=== PATIENT | female | born 1970 | race Caucasian/White ===

== ENCOUNTER 2020-09-25 07:51 | Emergency (ER) | payer OTHER, SELFPAY ==
[2020-09-25] VITALS (8 sets, daily range): BP systolic 157–180; BP diastolic 102–119; PULSE 73–99; RESP 16–20; TEMP 36.7; O2SAT 99–100
--- NOTE | ~2020-09-25 | CT_ITS ---
EXAMINATION: CT BRAIN W/O DATE: 09/25/2020 09:25 INDICATION: Occipital headache. TECHNIQUE: Computed tomography (CT) of the head was performed without intravenous contrast. The dose- length product was 605.33 mGy-cm. Automated exposure control and iterative reconstruction technique w ere employed. COMPARISON: No prior studies for comparison. FINDINGS: Normal brain parenchymal volume for age. Normal reyes-white differentiation. No acute intrac ranial hemorrhage, infarction, mass or mass effect. No ventriculomegaly or midline shift. Midline sagittal images demonstrate a normal corpus callosum, c raniovertebral junction and sella turcica. Basilar cisterns are patent. Paranasal sinuses and mastoids are pneumatized. No depressed skull fractures. IMPRESSION: 1. No acute intracranial abnormality. Reviewed, dictated and finalized at location A.
--- NOTE | 2020-09-25 08:53 | ED.HA ---
HPI - Headache General Chief Complaint: Headache Stated Complaint: Headache Time Seen by Provider: 09/25/20 08:38 Source: patient and RN notes reviewed Mode of arrival: ambulatory Limitations: no limitations History of Present Illness HPI Narrative: Patient is 50 years old white female presents with left occipital headache started 6 days ago, 4 days after receiving [employer] Covid vaccine. Patient is concerned about the possibility of blood clot and pinched nerve. Patient reported the pain is constant, was more intense last night than this morning. Intermittent nausea and vomiting. History of similar headache years ago and used to be on BuSpar and Excedrin. History of fibromyalgia. Patient denies any fever, chills, vision change. MD elicited complaint: headache Related Data Allergies Allergy/AdvReac Type Severity Reaction Status Date / Time codeine AdvReac Intermediate Hypotension Verified 09/25/20 08:02 erythromycin base AdvReac Intermediate upset Verified 09/25/20 08:02 stomach Review of Systems Review of Systems: Narrative: CONSTITUTIONAL: Denies fever, chills, or sweats. EYES: Denies visual changes, redness, or discharge. ENT: Denies rhinorrhea, congestion, sore throat, or otalgia. CARDIOVASCULAR: Denies chest pain, palpitations, or edema. RESPIRATORY: Denies cough or dyspnea. GASTROINTESTINAL: Denies abdominal pain, nausea, vomiting, or diarrhea. GENITOURINARY: Denies dysuria or hematuria. SKIN: Denies rash or itching. MUSCULOSKELETAL: Denies back pain, joint pain, or myalgia. NEUROLOGIC: Denies headache, numbness, or weakness. PSYCHIATRIC: Denies anxiety or depression. [facility] Past Medical History Medical History Arthritis Bronchitis Depression Fibromyalgia Insomnia Nonallergic rhinitis Normal colonoscopy (~03/2019) repeat 5-7 years Surgical History Surgical History [place] teeth extracted Family History Family History Mother Hypertension Father Family history of emphysema Social History Social History Smoking status: Never smoker Second hand tobacco smoke exposure: No Alcohol intake: current Exam Narrative: Exam Narrative: General appearance: Well-developed, well-nourished Skin: Normal color Head: Normocephalic, nontraumatic Eyes: Clear conjunctiva ENT: Oropharynx normal, ears normal, nose normal Neck: Supple, nontender Chest and respiratory: Airway patent, no respiratory distress, no accessory muscle use Heart: Regular rate/rhythm Abdomen: Soft, nontender, no organomegaly, quiet bowel sounds Vascular: Normal peripheral pulses, normal capillary refill. Musculoskeletal: Normal range of motion, nontender back Neurologic: Alert and oriented ?3, M[employer]ESS [employer]ER is normal as tested, no gross motor deficit Course Course Emergency Course: Improving Vital Signs Vital signs: Vital Signs Temperature 36.7 C 09/25/20 07:54 Pulse Rate 99 09/25/20 07:54 Respiratory Rate 20 09/25/20 07:54 Blood Pressure 180/119 H 09/25/20 07:54 Pulse Oximetry 100 09/25/20 07:54 Temperature 36.7 C 09/25/20 07:54 Pulse Rate 82 09/25/20 10:45 Respiratory Rate 18 09/25/20 10:45 Blood Pressure 157/108 H 09/25/20 10:45 Pulse Oximetry 100 09/25/20 10:45 MDM - Headache MDM Narrative Medical decision making narrative: Tension headache is my concern. CT head, IV Toradol, Valium and oral Excedrin ordered. Further plan to follow Differential Diagnosis Differential diagnosis: Likely tension headache,
[2020-09-25] MEDS: KETOROLAC 30 MG/ML VIAL (*BKC) IV PUSH (09:07)
[2020-09-25] MEDS: LORazepam INJ (*CRX) 2 MG/ML VIAL 1 MG IV PUSH (09:07)
[2020-09-25] MEDS: SODIUM CHLORIDE 0.9% IV 1,000 ML 999 ML IV CONT (09:33)
[2020-09-25] MEDS: ACETAMINOPHEN/ASPIRIN/CAFFEINE 250-250-65 MG TABLET 2 TABLET PO (09:33)
--- NOTE | 2020-09-25 10:23 | PC.NURSE ---
pt reports that meds have not reduced headache
[2020-09-25] MEDS: ONDANSETRON INJ 4 MG/2 ML VIAL IV PUSH (11:11)
[2020-09-25] MEDS: HYDROmorphone HCL INJ (*CRX) 1 MG/ML SYR 0.5 MG IV PUSH (11:11)
== END 2020-09-25 12:20 | disposition home or self-care (01) ==
PROVIDERS: Emergency Provider Emergency Medicine; PCP Family Medicine
DX: R51.9 Headache, unspecified (principal); I10 Essential (primary) hypertension; M19.90 Unspecified osteoarthritis, unspecified site; M79.7 Fibromyalgia
CPT/HCPCS: 70450; 96361; 96374; 96375; 99284; A9270; J1170; J1885; J2060; J2405; J7030

== ENCOUNTER → 2021-03-14 02:02 | Outpatient (CLI) | payer OTHER, SELFPAY ==
[2021-03-14 17:54] LABS: SARS-CoV-2 RNA PCR Negative
== END ==
PROVIDERS: PCP Family Medicine; Visit Provider Physician Assistant
DX: Z20.822 Contact with and (suspected) exposure to COVID-19 (principal)
CPT/HCPCS: C9803; U0003; U0005

== ENCOUNTER 2022-06-30 07:45 | Outpatient (CLI) | payer BC, SELFPAY ==
--- NOTE | ~2022-06-30 | US_ITS ---
EXAMINATION: US abdomen limited DATE: 06/30/2022 08:23 INDICATION: Right upper quadrant pain TECHNIQUE: Multiple grayscale and Doppler ultrasound images of the abdomen were obtained. COMPARISON: None available FINDINGS: The head, body, and tail of the pancreas are normal. The liver is normal with normal echoge nicity and echotexture. No surface nodularity. Normal hepatopetal flow in the main portal vein. The g allbladder is normal with no abnormal wall thickening, pericholecystic fluid or stones. The normal co mmon bile duct measures 4 mm. There was no sonographic Hook sign. IMPRESSION: 1. Normal sonographic study of the gallbladder. Reviewed, dictated and finalized at location L.
== END 2022-06-30 07:46 | disposition home or self-care (01) ==
LOC: ANHIMG 07:49
PROVIDERS: PCP Family Medicine; Visit Provider Physician Assistant Medical
DX: R10.11 Right upper quadrant pain (principal)
CPT/HCPCS: 76705

== ENCOUNTER 2023-08-20 10:59 | Outpatient (CLI) | payer BC, SELFPAY ==
--- NOTE | ~2023-08-20 | XR_ITS ---
Lumbosacral Spine: AP and lateral views Clinical History: Pain Findings: The normal lordotic curve is maintained. The vertebral bodies and posterior elements are i ntact. The intervertebral disc spaces are preserved. There is moderate facet arthropathy throughout the lumbar spine, worst at L4-L5 and L5-S1. The sacroiliac joints are normally outlined. Impression: Facet joint arthropathy, as detailed above. Reviewed, dictated and finalized at location M. Impression: Facet joint arthropathy, as detailed above.
--- NOTE | ~2023-08-20 | XR_ITS ---
Cervical Spine: AP, lateral, open-mouth views Clinical History: Pain Findings: The normal lordotic curve is maintained there is minimal grade 1 retrolisthesis of C5 over C6. There is advanced degenerative disc narrowing at C5-C6. There is mild degenerative disc narrowing at C6-C7. There are mild to moderate facet joint degenerative changes of the cervical spine. Pre-tierney tebral soft tissues are unremarkable. Impression: Degenerative spondylosis, as detailed above, worst at C5-C6. Reviewed, dictated and finalized at location M. Impression: Degenerative spondylosis, as detailed above, worst at C5-C6.
--- NOTE | ~2023-08-20 | XR_ITS ---
EXAMINATION: XR sacroiliac joints min 3V DATE: 08/20/2023 11:37 INDICATION: Arthralgia with multiple joint pain TECHNIQUE: Frontal and left and right oblique views of the bilateral sacroiliac joints were obtained. COMPARISON: None. FINDINGS: Alignment is normal. No fracture or suspected osteonecrosis. Mild bilateral hip and sacroiliac osteoa rthritis. No erosions to suggest an inflammatory sacroiliitis. A few phleboliths in the pelvis. T-sha ped IUD in expected position projecting over the central pelvis. IMPRESSION: 1. Mild bilateral hip and sacroiliac osteoarthritis. No erosions to suggest an inflammatory sacroilii tis. 2. IUD in expected position. Reviewed, dictated and finalized at location A. IMPRESSION: 1. Mild bilateral hip and sacroiliac osteoarthritis. No erosions to suggest an inflammatory sacroiliitis. 2. IUD in expected position.
== END 2023-08-20 11:00 ==
LOC: MICIMG 11:01
PROVIDERS: PCP Emergency Medicine Emergency Medical Services; Visit Provider Emergency Medicine Emergency Medical Services
DX: M16.0 Bilateral primary osteoarthritis of hip (principal); M46.1 Sacroiliitis, not elsewhere classified; M47.896 Other spondylosis, lumbar region; M47.897 Other spondylosis, lumbosacral region; M47.892 Other spondylosis, cervical region; R53.83 Other fatigue; M79.7 Fibromyalgia; M25.562 Pain in left knee; M25.561 Pain in right knee; Z97.5 Presence of (intrauterine) contraceptive device
CPT/HCPCS: 72040; 72100; 72202; 73562

== ENCOUNTER 2024-03-07 11:38 | Outpatient (CLI) | payer BC, SELFPAY ==
[2024-03-07 12:27] LABS: Influenza A QL RT-PCR Negative (Negative); Influenza B QL RT-PCR Negative (Negative); RSV RNA, RT-PCR Negative (Negative); SARS-CoV-2 RNA PCR Negative (Negative)
== END 2024-03-07 11:39 | disposition home or self-care (01) ==
LOC: ANHLAB 11:39
PROVIDERS: PCP Family Medicine; Visit Provider Family Medicine
DX: J06.9 Acute upper respiratory infection, unspecified (principal); Z20.822 Contact with and (suspected) exposure to COVID-19
CPT/HCPCS: 87637

== ENCOUNTER 2025-02-11 08:07 | Emergency (ER) | payer BC, SELFPAY ==
--- NOTE | 2025-02-11 08:14 | ED.GENADULT ---
HPI - General Adult General Chief complaint: Upper Respiratory Infection Stated complaint: vomiting Time Seen by Provider: 02/11/25 08:15 Source: patient Mode of arrival: ambulatory Limitations: no limitations History of Present Illness HPI narrative: 54-year-old female patient presents to the [facility] with complaints of vomiting for the past 2 days. Patient states she has just been not feeling well all week but the last 2 days has had some vomiting and some abdominal pain. Patient states she has had some right upper quadrant abdominal pain for the past 2 years however her abdominal pain has gotten worse over the last couple of days. Patient states she has had chills body aches fatigue but has not been measuring her temperature. Patient states last bowel movement was yesterday and was little bit of diarrhea. Patient states that she has been trying to take her blood pressure medication but has been vomiting it up Related Data Allergies Allergy/AdvReac Type Severity Reaction Status Date / Time codeine AdvReac Intermediate Hypotension Verified 02/11/25 08:29 erythromycin base AdvReac Intermediate upset Verified 02/11/25 08:29 stomach Review of Systems Review of Systems: CONSTITUTIONAL: Denies fever, chills, or sweats. Positive body aches and chills EYES: Denies visual changes, redness, or discharge. ENT: Denies rhinorrhea, congestion, sore throat, or otalgia. CARDIOVASCULAR: Denies chest pain, palpitations, or edema. RESPIRATORY: Denies cough or dyspnea. GASTROINTESTINAL: Positive abdominal pain, positive nausea, positive vomiting, positive diarrhea. GENITOURINARY: Denies dysuria or hematuria. Positive increase in urine output SKIN: Denies rash or itching. MUSCULOSKELETAL: Denies back pain, joint pain, or myalgia. NEUROLOGIC: Positive headache, denies numbness, or weakness. PSYCHIATRIC: Denies anxiety or depression. [facility] Past Medical History Medical History Hypertension Insomnia Fibromyalgia Depression Nonallergic rhinitis Normal colonoscopy (~03/2019) repeat 5-7 years Arthritis Surgical History Surgical History [place] teeth extracted Family History Family History Mother Hypertension Father Family history of emphysema Social History Social History Smoking status: Never smoker Second hand tobacco smoke exposure: No Alcohol intake: never Substance use: never Substance use type: does not use Lack of Transportation: No Lack of Food: Never True Current Housing: I Have Housing Concerned About Future Housing: No Difficulty Paying Gas/Electric Bills: No Difficulty Paying for Meds: No Currently Unemployed: No Education: Bachelor's Degree Difficulty w/ Childcare or Family Care: No Living arrangements: with family Gender identity (if verbalized by the patient): Female Spiritual care concerns: No Agree to blood products: Yes Comments At the time of my signature I agree with nursing past medical history, surgical, social, and family history. There is no relevant family history pertinent to the presenting complaint. Exam Narrative: GENERAL: Well-appearing, well-nourished, and in no acute distress. HEAD: Normocephalic, atraumatic. EYES: PERRLA and EOMI. ENT: Nares clear, no rhinorrhea or epistaxis. Mucous membranes moist. Posterior pharynx with no erythema, tonsillar enlargement, exudates or lesions present. Bilateral TMs are clear no erythema or foreign bodies the canal. NECK: Supple. No lymphadenopathy CHEST: Clear to auscultation. No respiratory distress. HEART: Regular rate and rhythm. No murmur heard. Normal peripheral pulses. ABDOMEN: Soft, flat, nondistended. No guarding, rebound tenderness, or rigid. No pulsatilla masses. Mild tenderness noted to bilateral upper quadrants and bilateral lower quadrants on palpation. Hyperactive Bowel sounds present in all four quadrants. No organomegaly. Negative Hook?s sign. No periumbicial tenderness. No Supra public tenderness or distension. Good femoral pulses bilaterally. No hernia noted. No scars or surface trauma. EXTREMITIES: Normal range of motion. No edema. SKIN: Warm, dry, no rash. NEURO: No focal deficits. Alert and oriented x3. Course Course Level of Care: Express Care Visit Reevaluation(s) Reevaluation #1: Re-evaluated patient notified her that her viral swabs are negative today we also checked her urine it does show some glucose ketones and protein in the urine however blood sugar was slightly elevated considering she has not had any thing to eat. Discussed with patient that her EKG is not super concerning today however given her symptoms and the right upper quadrant pain we are going to send her to the ER for further evaluation to rule out gallbladder and appendicitis or any other abdominal infection. Patient verbalized understanding denies any other questions or concerns at this time. Date: 02/11/25 Time: 09:08 Vital Signs Vital signs: Vital Signs Temperature 36.4 C L 02/11/25 08:17 Pulse Rate 80 02/11/25 08:17 Respiratory Rate 18 02/11/25 08:17 Blood Pressure 198/110 H 02/11/25 08:17 Pulse Oximetry 100 02/11/25 08:17 Oxygen Delivery Room Air 02/11/25 08:17 Temperature 36.4 C L 02/11/25 08:17 Pulse Rate 80 02/11/25 08:17 Respiratory Rate 18 02/11/25 08:17 Blood Pressure 198/110 H 02/11/25 08:17 Pulse Oximetry 100 02/11/25 08:17 Oxygen Delivery Room Air 02/11/25 08:17 Vital signs reviewed. The patient has been informed that they may have pre-hypertension or Hypertension based on a BP reading in the department. I recommend that the patient call the primary care provider listed on their discharge instructions or a physician of their choice this week to arrange follow up for further evaluation of possible pre-hypertension or Hypertension Transfer Transfered to: [facility] Transportation: Other (Private vehicle) Transfer rationale: Nausea vomiting abdominal pain and hypertension Accepting physician: Dr. Cr Medical Decision Making MDM Narrative Medical decision making narrative: Plan care patient is to swab her today for strep, influenza and COVID. We will also consider checking a urine dip on her and a blood sugar as well as EKG. I will reassess patient once this has resulted if we do not find anything with these we may refer her to the ER for further evaluation. Differential Diagnosis Differential Diagnosis: Differential diagnosis: Appendicitis, ovarian torsion, gallbladder disease, ovarian torsion, pancreatitis, lower lobe pneumonia,AAA, AMI or ACS, DKA, diverticulitis. Vital Signs Vital Signs: Vital Signs Temperature 36.4 C L 02/11/25 08:17 Pulse Rate 80 02/11/25 08:17 Respiratory Rate 18 02/11/25 08:17 Blood Pressure 198/110 H 02/11/25 08:17 Pulse Oximetry 100 02/11/25 08:17 Oxygen Delivery Room Air 02/11/25 08:17 Temperature 36.4 C L 02/11/25 08:17 Pulse Rate 80 02/11/25 08:17 Respiratory Rate 18 02/11/25 08:17 Blood Pressure 198/110 H 02/11/25 08:17 Pulse Oximetry 100 02/11/25 08:17 Oxygen Delivery Room Air 02/11/25 08:17 Lab Data Labs: Lab Results 02/11/25 02/11/25 02/11/25 Range/Units 08:15 08:27 08:51 POC Capillary Glucose 160 H (65-105) mg/dl POC Influenza A Ag Negative (Negative) POC Influenza B Ag Negative (Negative) POC SARS CoV-2 Ag Negative (Negative) POC Grp A Strep Screen Negative (Negative) ECG Data EKG #1: Interpretation: Sinus rhythm. Left atrial enlargement. Abnormal ECG. Unconfirmed report. Vent rate: 97 IN interval: 120 QRS duration: 86 QT/QTC: 357/412 T-R-T axis: 61, 20, 23 Average RR: 613 QTC B: 455 QTCf: 420 EKG Interpretation: normal rate Critical Care Time Critical Care Time Critical Care Time: No Discharge Plan Discharge Clinical Impression: Right upper quadrant abdominal pain Nausea & vomiting Qualifiers: Vomiting type: unspecified Qualified Code(s): R11.2 - Nausea with vomiting, unspecified Patient Disposition: Acute Care Hospital Condition: Stable Instructions: Antibiotic Form Patient Language: Mauritanian Prescriptions: No Action albuterol sulfate 90 mcg/actuation HFA aerosol inhaler 1 inh inhalation Q4H PRN (Reason: shortness of breath or wheezing) Qty: 8.5 1RF cyclobenzaprine 10 mg tablet 10 mg PO TID Qty: 21 0RF aripiprazole [Abilify] 5 mg tablet 5 mg PO QHS Qty: 30 0RF Rx Instructions: Cut tablets in half for two weeks, take 1/2 tab per night. After two weeks, take one full tablet per night. paroxetine HCl [Paxil] 20 mg tablet 20 mg PO DAILY Qty: 90 3RF duloxetine [Cymbalta] 20 mg capsule,delayed release(DR/EC) 20 mg PO BID Qty: 60 6RF losartan 50 mg tablet 50 mg PO DAILY Qty: 90 3RF meloxicam 15 mg tablet 15 mg PO DAILY Qty: 30 3RF trazodone 100 mg tablet 100 mg PO QHS Qty: 60 3RF Follow-up/Referrals: Jessica Mandujano MD [Primary Care Provider, Family Practice] Time of Disposition: 09:08
[2025-02-11 08:17] VITALS: BP 198/110; PULSE 80; RESP 18; TEMP 36.4; O2SAT 100
[2025-02-11 08:36] LABS: EDSTREPNEGPOS1 Negative (Negative)
[2025-02-11 08:36] LABS: EDCOVIDSCREEN Negative (Negative); EDINFLUASCREEN Negative (Negative); EDINFLUBSCREEN Negative (Negative)
--- NOTE | 2025-02-11 08:47 | ECG_ITS ---
Test Date: 2025-02-11 09:57:50 Measurements Intervals [place] Rate: 94 P: 53 NV: 104 QRS: 6 QRSD: 89 T: 19 QT: 369 QTc: 463 Interpretive Statements SINUS RHYTHM WITH SHORT NV INTERVAL Compared to ECG 02/11/2025 09:02:58 no change Electronically Signed On 02-11-2025 13:21:06 CARDER BLANKETS by [place] M.D.
[2025-02-11 09:03] LABS: EDUAAPPEAR Clear; EDUABILI 1+ (Negative); EDUABLOOD Trace (Negative); EDUACOLOR1 Dark; EDUAGLUCOSE 1+ (Negative); EDUAKETONE 1+ (Negative); EDUALEUKO Negative (Negative); EDUANITRATE Negative (Negative); EDUAPH 6.0; EDUAPROTEIN 3+ (Negative); EDUASPGRAVITY 1.030; EDUAUROBILI 0.2
== END 2025-02-11 09:08 | disposition short-term general hospital (02) ==
PROVIDERS: Emergency Provider Nurse Practitioner Family; PCP Family Medicine
DX: R10.11 Right upper quadrant pain (principal); R11.2 Nausea with vomiting, unspecified; Z20.822 Contact with and (suspected) exposure to COVID-19; I10 Essential (primary) hypertension; M79.7 Fibromyalgia; M19.90 Unspecified osteoarthritis, unspecified site
CPT/HCPCS: 81003; 82948; 87081; 87426; 87804; 87880; 93005; 99213; G0463

== ENCOUNTER 2025-02-11 09:38 | Emergency (ER) | payer BC, SELFPAY ==
[2025-02-11] VITALS (18 sets, daily range): BP systolic 130–167; BP diastolic 84–106; PULSE 68–119; RESP 15–27; TEMP 36.4; O2SAT 86–100
--- NOTE | ~2025-02-11 | CT_ITS ---
EXAMINATION: CT abdomen pelvis w con DATE: 02/11/2025 11:18 INDICATION: Right abdominal pain. Nausea and vomiting. TECHNIQUE: Computed tomography (CT) of the abdomen and pelvis was performed with 100 mL Omnipaque 350 intravenous contrast. Automated exposure control and iterative reconstruction technique were employed. The dose-length product was 285.68 mGy-cm. COMPARISON: None. FINDINGS: The visualized portions of the lung bases demonstrate mild atelectasis. Calcified right lung nodules and calcified paraesophageal lymph nodes are consistent with old granulomatous disease. No pleural effusion. The heart size is normal. No pericardial effusion. There is a 9 mm cyst in the live r. The gallbladder is normal. Calcifications in the spleen are consistent with old granulomatous disease. The pancreas, adrenal glands, and right kidney are normal. There is cortical thinning of left kidney. There is a 4 mm cyst in left kidney. There is an intrauterine device in expected position. The appendix is normal. There are no dilated loops of bowel. There is no free intraperitoneal fluid. There is mild thoracic and lumbar spondylosis. IMPRESSION: 1. No etiology for the patient's symptoms. Reviewed, dictated and finalized at location E. ADJUSTER
--- NOTE | 2025-02-11 09:49 | ECG_ITS ---
Test Date: 2025-02-11 09:02:58 Measurements Intervals [place] Rate: 97 P: 61 CA: 120 QRS: 20 QRSD: 86 T: 23 QT: 357 QTc: 455 Interpretive Statements SINUS RHYTHM LEFT ATRIAL ENLARGEMENT [-0.15mV P WAVE IN V1/V2] No previous ECG available for comparison Electronically Signed On 02-11-2025 13:20:41 LAST MARKER by [place] M.D.
--- NOTE | 2025-02-11 10:08 | ED.NAVMDI ---
HPI - Nausea/Vomiting/Diarrhea General Chief complaint: Nausea/Vomiting/Diarrhea Stated complaint: NV, not able to keep anything down, abd pain Time Seen by Provider: 02/11/25 10:03 Source: patient Mode of arrival: ambulatory Limitations: no limitations History of Present Illness HPI Narrative: 54 years old white female referred to the emergency room from urgent care for further evaluation. Patient complain of headache started 4 days ago, gradually getting better. Could not go to work 3 days ago, yesterday started having severe frequent vomiting roughly up to 50 time and up to 3 episodes of watery diarrhea. Been having right upper quadrant pain off and on for the last 2 years probably worse over the last 2 days which is steady radiating to epigastric and retrosternal. Patient does not smoke cigarette, drink alcohol occasionally, using gummies daily. No abdominal surgery, history of hypertension, granddaughter had upper respiratory symptom 1 week ago At the urgent care patient tested negative for COVID flu and RSV Patient drove herself to the emergency room. Related Data Allergies Allergy/AdvReac Type Severity Reaction Status Date / Time codeine AdvReac Intermediate Hypotension Verified 02/11/25 09:45 erythromycin base AdvReac Intermediate upset Verified 02/11/25 09:45 stomach Review of Systems Review of Systems: All systems reviewed & are unremarkable except as noted in HPI and below PMFSH Past Medical History Medical History Hypertension Insomnia Fibromyalgia Depression Nonallergic rhinitis Normal colonoscopy (~03/2019) repeat 5-7 years Arthritis Surgical History Surgical History Elizabeth teeth extracted Family History Family History Mother Hypertension Father Family history of emphysema Social History Social History Smoking status: Never smoker Second hand tobacco smoke exposure: No Alcohol intake: never Substance use: never Substance use type: does not use Lack of Transportation: No Lack of Food: Never True Current Housing: I Have Housing Concerned About Future Housing: No Difficulty Paying Gas/Electric Bills: No Difficulty Paying for Meds: No Currently Unemployed: No Education: Bachelor's Degree Difficulty w/ Childcare or Family Care: No Living arrangements: with family Gender identity (if verbalized by the patient): Female Spiritual care concerns: No Agree to blood products: Yes Exam Narrative: General appearance: Well-developed, well-nourished Skin: Normal color Head: Normocephalic, nontraumatic Eyes: Clear conjunctiva ENT: Oropharynx normal, ears normal, nose normal Neck: Supple, nontender Chest and respiratory: Airway patent, no respiratory distress, no accessory muscle use Heart: Regular rate/rhythm Abdomen: Soft, slight tenderness with deep palpation right upper quadrant, negative Hook sign, no organomegaly, quiet bowel sounds Vascular: Normal peripheral pulses, normal capillary refill. Musculoskeletal: Normal range of motion, nontender back Neurologic: Alert and oriented ?3, DIRECTOR EDUCATIONAL RADIO is normal as tested, no gross motor deficit Course Vital Signs Vital signs: Vital Signs Temperature 36.4 C 02/11/25 09:46 Pulse Rate 117 H 02/11/25 09:46 Respiratory Rate 18 02/11/25 09:46 Blood Pressure 145/94 H 02/11/25 09:46 Pulse Oximetry 100 02/11/25 09:46 Oxygen Delivery Room Air 02/11/25 09:46 Temperature 36.4 C 02/11/25 09:46 Pulse Rate 99 02/11/25 10:04 Respiratory Rate 17 02/11/25 10:04 Blood Pressure 157/90 H 02/11/25 10:04 Pulse Oximetry 100 02/11/25 10:04 Oxygen Delivery Room Air 02/11/25 09:46 MDM - Nausea/Vomiting/Diarrhea MDM Narrative Medical decision making narrative: Nausea, vomiting and diarrhea Vital signs showing blood pressure 145/94, heart rate 117 otherwise within normal limit Physical exam showing slight tenderness right quadrant Differential diagnosis include gastroenteritis, electrolyte imbalance, dehydration, cholecystitis, pancreatitis, colitis, diverticulitis Blood workup today includes CBC, CMP, lipase showed sodium 132, total bilirubin 1.7, otherwise within normal limit Urinalysis showed no evidence of infection CT abdomen and pelvis with IV contrast showed no acute abnormality. Diagnosis gastroenteritis The pt was discharged to home.the pt,s condition upon discharge was fair,education was provided to the pt in reference to the final impression,discharge study results,treatment,prognosis and need for follow up . Differential Diagnosis Differential diagnosis: Likely other (As above) Medical Records Attestation: I reviewed the patient's medical records. Lab Data Attestation: I reviewed the patient's lab results. 02/11/25 10:04 02/11/25 10:04 Labs: Lab Results 02/11/25 Range/Units 10:04 WBC 6.5 (4.5-10.0) K/mm3 RBC 4.56 (4.2-5.4) M/mm3 Hgb 13.2 (12.0-15.0) g/dL Hct 40.9 (37.0-47.0) % MCV 89.7 (80-100) fl MCH 28.9 (26-34) pg MCHC 32.3 (32-36) g/dl RDW 12.3 (11.5-14.5) % Plt Count 401 H (150-375) k/mm3 MPV 8.6 (7.4-10.4) fl Immature Gran % (Auto) 0.5 (0-0.5) % Neut % (Auto) 83.4 H (45.5-73.1) % Lymph % (Auto) 9.3 L (18.3-44.2) % Forrest % (Auto) 6.6 (2.6-8.5) % Eos % (Auto) 0.0 (0-4.4) % Baso % (Auto) 0.2 (0.2-1.2) % Lymph # (Auto) 0.61 L (0.9-3.2) K/mm3 Forrest # (Auto) 0.4 (0.1-0.6) K/mm3 Eos # (Auto) 0.0 (0-0.3) K/mm3 Baso # (Auto) 0.0 (0.0-0.1) K/mm3 Abs Immat Gran (auto) 0.03 (0.00-0.031) K/mm3 Absolute Neuts (auto) 5.5 (1.3-6.7) K/mm3 Absolute Nucleated RBC 0.000 (0.0-0.012) K/mm3 Nucleated RBC % 0.0 (0.0-0.2) % Sodium 132 L (137-145) mmol/L Potassium 3.8 (3.4-5.0) mmol/L Chloride 95 L (98-107) mmol/L Carbon Dioxide 26 (22-30) mmol/L Anion Gap 11 (4-12) mmol/L BUN 11 (7-17) mg/dL Creatinine 0.66 L (0.7-1.0) mg/dL Estim Creat Clear Calc 76 ml/min Estimated GFR > 60 (59 - ) Glucose 134 H (65-110) mg/dL Calcium 10.0 (8.4-10.2) mg/dL Total Bilirubin 1.7 H (0.2-1.3) mg/dL AST 29 (14-36) U/L ALT 25 (6-35) U/L Alkaline Phosphatase 93 (38-126) U/L Troponin I 0.012 (0.000-0.034) ng/mL Total Protein 8.7 H (6.3-8.2) g/dL Albumin 4.9 (3.5-5.1) g/dL Lipase 84 (23-300) U/L Urine Color Dark yellow (Yellow) Urine Appearance Cloudy H (Clear) Urine pH 6.0 (5.0-9.0) Ur Specific [place] 1.026 (1.001-1.035) Urine Protein 3+ H (Negative) mg/dL Urine Glucose (UA) Negative (Negative) mg/dL Urine Ketones 1+ H (Negative) mg/dL Ur Blood (Man) Negative (Negative) Urine Nitrate Negative (Negative) Urine Bilirubin 1+ H (Negative) Urine Urobilinogen 1.0 (<2.0) mg/dL Add Ur Microanalysis Reviewed Leukocyte Esterase Rfl Trace H (Negative) AMBER/UL Urine RBC 3-5 H (0-2) /hpf Urine WBC 0-5 (0-3) /hpf Ur Squamous Epith Cells Moderate (Few) /hpf Urine Bacteria None seen /hpf Urine Casts 6-10 Urine Mucus Present /lpf POC Urine HCG, Qual Negative (Negative) Imaging Data Radiologist's impression: Impressions Abdomen/Pelvis CT 02/11/25 11:21 IMPRESSION: 1. No etiology for the patient's symptoms. Critical Care Time Critical Care Time Critical Care Time: No Discharge Plan Discharge Clinical Impression: Vomiting Patient Disposition: Home Condition: Improved Instructions: Acute Nausea and Vomiting (ED) Additional Instructions: Return if symptoms are worsening , call your family physician for appointment, take Tylenol as as needed for aches and pain, continue home medications. Patient Language: Sudanese Prescriptions: New ondansetron 4 mg tablet,disintegrating 4 mg PO Q4H PRN (Reason: nausea and vomiting) 3 Days Qty: 10 0RF No Action albuterol sulfate 90 mcg/actuation HFA aerosol inhaler 1 inh inhalation Q4H PRN (Reason: shortness of breath or wheezing) Qty: 8.5 1RF cyclobenzaprine 10 mg tablet 10 mg PO TID Qty: 21 0RF aripiprazole [Abilify] 5 mg tablet 5 mg PO QHS Qty: 30 0RF Rx Instructions: Cut tablets in half for two weeks, take 1/2 tab per night. After two weeks, take one full tablet per night. paroxetine HCl [Paxil] 20 mg tablet 20 mg PO DAILY Qty: 90 3RF duloxetine [Cymbalta] 20 mg capsule,delayed release(DR/EC) 20 mg PO BID Qty: 60 6RF losartan 50 mg tablet 50 mg PO DAILY Qty: 90 3RF meloxicam 15 mg tablet 15 mg PO DAILY Qty: 30 3RF trazodone 100 mg tablet 100 mg PO QHS Qty: 60 3RF Follow-up/Referrals: Jessica Mandujano MD [Primary Care Provider, Family Practice] Stand Alone Forms: Work/School Release IP
[2025-02-11 10:09] LABS: BEDSIDEPREGUCG Negative (Negative)
[2025-02-11 10:13] LABS: Hematocrit 40.9 % (37.0-47.0); Hemoglobin 13.2 g/dL (12.0-15.0); Immature Granulocyte Percent A 0.5 % (0-0.5); Lymphocytes Absolute Auto 0.61 K/mm3 (0.9-3.2); Mean Corpuscular HGB Conc 32.3 g/dl (32-36); Mean Corpuscular Hemoglobin 28.9 pg (26-34); Mean Corpuscular Volume 89.7 fl (80-100); Nucleated Red Blood Cells Absolute Auto 0.000 K/mm3 (0.0-0.012); Nucleated Red Blood Cells Perc 0.0 % (0.0-0.2); Platelet Count Result 401 k/mm3 (150-375); Red Blood Count 4.56 M/mm3 (4.2-5.4); White Blood Count 6.5 K/mm3 (4.5-10.0)
[2025-02-11 10:22] LABS: Add Urine Microscopic? YES; Appearance Urine Cloudy (Clear); Glucose Urine UA Negative (Negative); Leukocyte Esterase Ur Trace LEU/UL (Negative); Need Manual Microscopic Reviewed; Nitrate Urine Negative (Negative); Specific Grav Ur 1.026 (1.001-1.035)
[2025-02-11 10:23] LABS: Alanine Aminotransferase 25 U/L (6-35); Albumin Level 4.9 g/dL (3.5-5.1); Alkaline Phosphatase 93 U/L (38-126); Anion Gap 11 mmol/L (4-12); Aspartate Amino Transferase 29 U/L (14-36); Bilirubin,Total 1.7 mg/dL (0.2-1.3); Blood Urea Nitrogen 11 mg/dL (7-17); Calcium 10.0 mg/dL (8.4-10.2); Carbon Dioxide 26 mmol/L (22-30); Chloride 95 mmol/L (98-107); Estimated CRCL calculation 76 ml/min; Estimated Glomerular Filt Rate > 60; Glucose 134 mg/dL (65-110); Lipase 84 U/L (23-300); Potassium 3.8 mmol/L (3.4-5.0); Sodium 132 mmol/L (137-145); Total Protein 8.7 g/dL (6.3-8.2)
[2025-02-11 10:34] LABS: Troponin I 0.012 ng/mL (0.000-0.034)
[2025-02-11] MEDS: SODIUM CHLORIDE 0.9% IV 1,000 ML 999 ML IV CONT (11:18)
[2025-02-11] MEDS: ONDANSETRON INJ 4 MG/2 ML VIAL IV PUSH (11:18)
== END 2025-02-11 12:56 | disposition home or self-care (01) ==
PROVIDERS: Emergency Medicine; Emergency Provider Emergency Medicine; PCP Family Medicine
DX: R11.2 Nausea with vomiting, unspecified (principal)
CPT/HCPCS: 36415; 74177; 80053; 81001; 81003; 81025; 82948; 83690; 84484; 85025; 87081; 87426; 87804; 87880; 93005; 96361; 96374; 99284; J2405; J7030; Q9967

== ENCOUNTER 2025-03-14 11:01 | Outpatient (CLI) | payer BC, SELFPAY ==
--- NOTE | 2025-03-14 11:07 | ECG_ITS ---
Test Date: 2025-03-14 11:22:58 Measurements Intervals [place] Rate: 97 P: 64 NV: 123 QRS: 33 QRSD: 91 T: 40 QT: 353 QTc: 450 Interpretive Statements SINUS RHYTHM BASELINE ARTIFACT- I, III, AVR, AVL ,V1 NORMAL ECG Compared to ECG 02/11/2025 09:57:50 Short NV interval no longer present Electronically Signed On 03-14-2025 11:49:56 VEGETABLE SORTER by Billy Nicholas D.O.
--- OUTSIDE RECORDS SUMMARY | 2025-03-14 12:41 | XMS_ITS | Encounter Summary ---
Author Organization [facility] Healthcare Address [address] [place] [address] Care Team Providers Care Baby Formula Mixer Name Role Phone Jessica Mandujano MD Primary Care Provider [phone] Encounter Details Date Type Department Care Team (Late st Contact Info) Description 05/01/[address] 

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
--- OUTSIDE RECORDS SUMMARY | 2025-03-14 12:41 | XMS_ITS | Clinical Summary ---
Author Organization [facility] Address [address] [place] [address] Care Team Providers Care Semiconductors Wafer Breaker Name Role Phone Jessica Mandujano MD Primary Care Provider [phone] Primo Bowens MD Unavailable [phone] Source Comments [facility],non-owned Affiliates and Associated Physician Practices is amultiple site organization consisting of ambulatory clinics and hospital sitesin [place], [place], [place] and [place]. This disclosure is being madepursuant to the Care Everywhere program and may not contain all information available regarding this patient. Last updated 17.[facility] Allergies Active Allergy Reactions Criticality Noted Date Comments Codeine Other High 12/20/2017 Medications * Be aware that medications may not be up to date on this document. Alwaysverify current medications with the patient. traZODone (DESYREL) 150 MG tablet Take 150 mg by mouth at bedtime 06/29/2019 Active VENTOLIN HFA 108 (90 Base) MCG/ACT inhaler Take 2 puffs by mouth as needed 09/06/2018 Active gabapentin (NEURONTIN) 300 MG capsule Take 300 mg by mouth at bedtime 07/27/2019 Active meloxicam (MOBIC) 15 MG tablet Take 15 mg by mouth once daily 07/27/2019 Active PARoxetine (PAXIL) 20 MG tablet Take 20 mg by mouth once daily 12/09/2017 Active levonorgestrel (MIRENA, 52 MG,) 20 MCG/24HR IUD Active Active Problems No known active problems Social History Tobacco Use Types Packs/Day Years Used Date Smoking Tobacco: Never Smokeless Tobacco: Never Alcohol Use Standard Drinks/Week Comments Not Currently 0 (1 standard drink = 0.6 oz pur e alcohol) Comments No Sex and Gender Information Value Date Recorded Sex Assigned at Not on file 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 Gender Identity Not on file Sexual Orientation Not on file Plan of Treatment Health Maintenance Due Date Last Done Comments COLOGUARD (AGES 45-75) - COL ON CA SCREENING 1968 COLON MONITORING 1968 COLONOSCOPY - COLON CA SCREENING 1968 CT COLONOGRAPHY - COLON CA SCREENING 1968 Colorectal Cancer Screening 1968 FIT - COLON CA SCREENING 1968 FLEX SIG - COLON CA SCREENING 1968 LIPID TESTING 1968 MAMMOGRAM 1968 HIV SCREENING 1983 DTAP/TDAP/TD VACCINES (1 - Tdap) 1987 HEPATITIS B VACCINE (1 of 3 - 19+ 3-dose series) 1987 PAP SMEAR 1989 Cervical Cancer Screening 1998 PAP with HPV 1998 PNEUMOCOCCAL VACCINE 50+ (1 of 1 - PCV) 2018 ZOSTER VACCINE (1 of 2) 2018 DEPRESSION SCREENING 04/12/2024 COVID-19 VACCINE (1 - 2024-2 6 season) 2024 INFLUENZA VACCINE (#1) 2024 HEPATITIS C SCREENING Completed 08/28/2019 HIB VACCINE Aged Out No longer eligi ble based on patient's age to complete this topic HPV VACCINE Aged Out No longer eligi ble based on patient's age to complete this topic MENINGOCOCCAL (Group B) VACC INE SHARED DECISION-MAKING Aged Out No longer eligibl e based on patient's age to complete this topic MENINGOCOCCAL GROUPS A/C/Y/W VACCINE Aged Out No longer eligible b ased on patient's age to complete this topic Procedures Procedure Name Priority Date/Time Associated Diagnosis Comments HEPATITIS SCREEN ACUTE Routine 08/28/2019 1:33 PM CDT Fatigue, unspecified type Arthralgia, unspecified joint from Last 3 Months or Most Recently Relevant to Health Maintenance Results * HEPATITIS SCREEN ACUTE (08/28/2019 1:33 PM CDT) Hepatitis A Virus Antibody IgM Negative Negative [facility] INSURANCE BILL Hepatitis B Virus Surface Antigen Negative Negative [facility] INSURANCE BILL Hepatitis B Core Virus Antibody IgM Negative Negative [facility] INSURANCE BILL Hepatitis C Antibody 0.1 0.0 - 0.9 s/co ratio [facility] INSURANCE BILL Comment: Negative: < 0.8 Indeterminate: 0.8 - 0.9 Positive: > 0.9 . The CDC recommends that a positive HCV antibody result be followed up with a HCV Nucleic Acid Amplification test ([id number]). Blood BLOOD SPECIMEN / Unknown 08/28/2019 1:33 PM CDT 08/28/2019 Narrative Resulting Agency Comment Lab Testing performed at: [facility] [address] [id number] Primo Bowens MD LAB - CHEMISTRY ORDERABLES Liz locke Result [facility] INSURANCE BILL [address] [place] [address] from Last 3 Months or Most Recently Relevant to Health Maintenance Insurance [facility] Care Teams Semiconductors Wafer Breaker Relationship Specialty Start Date End Date Jessica Mandujano MD [address] [place] [address] PCP - General Family Medicine 08/24/19 Primo Bowens MD [address] [place] [address] Crm Solution Architect Rheumatology 08/24/19
--- OUTSIDE RECORDS SUMMARY | 2025-03-14 12:41 | XMS_ITS | Clinical Summary ---
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 Role Phone Unavailable Primary Care Provider Unavailabl e Social History Tobacco Use Types Packs/Day Years Used Date Smoking Tobacco: Never Assessed Comments Unknown Sex and Gender Information Value Date Recorded Sex Assigned at Not on file Legal Sex Female 4:42 PM CDT Gender Identity Not on file Sexual Orientation Not on file Plan of Treatment Health Maintenance Due Date Last Done Comments Cervical Cancer Screening Pa p Smear (Age 30 to 64) Every 3 Years 1968 Colorectal Cancer Screening Colonoscopy (10 Years) 1968 Annual Physical 1971 Hepatitis C 1986 DTaP, Tdap and Td Vaccines ( 1 - Tdap) 1987 Hepatitis B Vaccines (1 of 3 - 19+ 3-dose series) 1987 Cervical Cancer Screening Pa p with HPV Testing (Age 30 to 64) Every 5 Years 1998 Cervical Cancer Screening with HPV 1998 Mammogram Screening 2008 Pneumococcal Vaccine: 50+ Ye ars (1 of 1 - PCV) 2018 Zoster Vaccines (1 of 2) 2018 COVID-19 Vaccine (2024-2 6 season) 2024 Influenza Adult (#1) 2025 Hepatitis A Vaccines Aged Out No long er eligible based on patient's age to complete this topic Meningococcal B Vaccine Aged Out No l onger eligible based on patient's age to complete this topic Meningococcal Vaccine Aged Out No sharon brandon eligible based on patient's age to complete this topic RSV Immunizations Under 20 Months Aged Out No longer eligible based on patient's age to complete this topic
== END 2025-03-14 11:02 | disposition home or self-care (01) ==
LOC: ANHCARD 11:03
DX: R07.9 Chest pain, unspecified (principal)
CPT/HCPCS: 93005